=== PATIENT | female | born 1950 | race Caucasian/White ===

== ENCOUNTER 2019-01-16 14:08 | Inpatient (IN) | payer OTHER ==
[~2019-01-16] VITALS: Ht 157.5 cm; Wt 71.2 kg
[~2019-01-16 14:08] MED LIST: ASPIRIN EC81 M1 PO; CENTRUM SILVER1 EAC4 PO; CIPROFLOXACIN500 M1 PO; ESTRACE0.5 MG PO; GLUCOPHAGE500 MG; LISINOPRIL20 MG PO; PAXIL40 MG PO; PRAVASTATIN SOD20 MG PO; PROVERA2.5 MG PO; VITAMIN B-12500 MCG PO
[2019-01-16 14:11] VITALS: BP 161/89
[2019-01-16] MEDS ORDERED: ZANTAC 150MG T150 MG PO (14:52)
[2019-01-16] MEDS ORDERED: LOPRESSOR50 PO (14:53)
[2019-01-16] MEDS ORDERED: LISINOPRIL40 MG PO (14:54)
[2019-01-16] MEDS ORDERED: PAROXETINE HCL30 MG PO (14:54)
[2019-01-16] MEDS ORDERED: MELATONIN5 M1 PO (14:55)
[2019-01-16] MEDS ORDERED: FISH OIL 1,2001 EAC3 PO (14:55)
[2019-01-16] MEDS ORDERED: [UNRECOGNIZED DRUG - OTHER] PO (14:56)
[2019-01-16] MEDS ORDERED: METOPROLOL SUCC50 MG PO (14:57)
[2019-01-16 14:58] LABS: ABSOLUTE NEUTROPHILS 5.5 thou/uL (1.4-8.2); BASOPHILS 0.2 % (0.0-2.0); HEMATOCRIT 38.1 % (37.0-47.0); LYMPHOCYTES 22.7 % (24.0-44.0); MCH 29.4 pg (26.0-34.0); MCHC 34.1 g/dL (28.0-37.0); MCV 86.1 fL (80.0-100.0); MONOCYTES 8.2 % (1.0-8.0); PLATELET COUNT 273 thou/uL (150-400); POLYS 67.9 % (36.0-66.0); RBC 4.42 mil/uL (4.20-5.00); RDW 13.5 % (10.5-14.5); WBC 8.1 thou/uL (4.0-11.0)
[2019-01-16] MEDS ORDERED: NORVASC10 MG PO (14:58)
[2019-01-16] MEDS ORDERED: STOOL SOFTENER100 MG PO (14:58)
[2019-01-16 15:17] LABS: ANION GAP 13 mmol/L (7-16); BUN 17 mg/dL (7-18); CALCIUM 10.6 mg/dL (8.5-10.1); CHLORIDE 97 mmol/L (98-107); CO2 26 mmol/L (21-32); CREATININE 1.1 mg/dL (0.6-1.0); GLUCOSE 120 mg/dL (74-106); POTASSIUM 4.4 mmol/L (3.5-5.1); SODIUM 136 mmol/L (136-145)
[2019-01-16 15:24] LABS: ALBUMIN 4.4 g/dL (3.4-5.0); SALICYLATE < 2.8 mg/dL (2.8-20.0); SGOT 24 U/L (15-37); SGPT 28 U/L (30-65); TOTAL BILIRUBIN 0.3 mg/dL (<0.1-1.0)
[2019-01-16 15:24] LABS: URINE BILIRUBIN NEGATIVE (Negative); URINE BLOOD NEGATIVE (Negative); URINE CLARITY CLEAR; URINE COLOR YELLOW; URINE GLUCOSE-RANDOM* NEGATIVE (Negative); URINE KETONES NEGATIVE (Negative); URINE LEUKOCYTES-REFLEX NEGATIVE (Negative); URINE NITRITE-REFLEX NEGATIVE (Negative); URINE PROTEIN (DIPSTICK) 2+ (Negative); URINE UROBILINOGEN 0.2 E.U./dl (0.2-1.0)
[2019-01-16 15:31] LABS: AMP/METHAMP Negative (Negative); BARBITURATES Negative (Negative); BENZODIAZEPINES Negative (Negative); COCAINE Negative (Negative); METHADONE Negative (Negative); OPIATES Negative (Negative); PCP Negative (Negative)
[2019-01-16 15:32] LABS: BACTERIA-REFLEX None Seen /HPF (None Seen); CASTS None Seen /LPF (None Seen); CRYSTALS None Seen /LPF (None Seen); MUCUS 4-6 Moderate strn/LPF (None Seen); SQUAMOUS 0-3 Few /LPF (0-3); URINE RBC None Seen /HPF (0-2); URINE WBC-REFLEX 0-5 Rare /HPF (0-5)
[2019-01-16 16:42] VITALS: BP 148/79
--- NOTE | 2019-01-16 17:00 | NUR ---
CLIENT HERE FROM ER. HAS CANCER AND LEFT HER MAY 2018, HE HAS HOUSE IN [place], [place]. HE HAS BEEN SPENDING MONEY ON RV, TRUCK, COW, AND HORSE. HE HAS CUTE OUT OF 32 YEARS DUE TO HIS CANCER. SHE FELT DEPRESSED AND WANTED TO TAKE PILLS AND NOT WAKE UP. SHE LIVES ON OWN, CALLED OF HER SI. HE CALLED POLICE. HE WANTED TO FOLLOW AMBULANCE TO HOSPITAL, HE WAS NOT ALLOWED TO FOLLOW AFTER. SHE WISHES FOR NO ONE IN FAMILY TO KNOW SHE IS HERE. SHE STATED SHE JUST WANTS TO FIGURE OUT WHAT TO DO, SELL HER HOUSE OR GO TO [facility] TO VISIT FAMILY. SHE JUST WANTS TO GET HELP AND NOT FEEL QUILTY ABOUT ILLNESS.
[2019-01-16 17:30] VITALS: BP 165/66
[2019-01-16 19:11] VITALS: BP 165/66
[2019-01-16 19:39] VITALS: BP 150/66
--- NOTE | 2019-01-16 23:45 | NUR ---
INTAKE COMPLETED ON DAY SHIFT. ASSUMED CARE @ 19:30. SITTING IN DAY ROOM. PT EXPRESSED THAT SHE WANTS TO LEAVE THIS HOSPITAL TO GO TO THE PSYCHIATRIC UNIT @ [facility]. CONVINCED TO STAY TONIGHT AND MEET WITH WHEN HE ROUNDS TOMORROW A.M. DR HENDERSON ADVISED OF SAME WHEN HE CALLED THE [facility] UN[facility]. GIVEN MELATONIN 10 MG AND LIPITOR 20MG, AND PRN SEROQUIL 25MG FOR ANXIETY. IN BED, ASLEEP.
--- NOTE | 2019-01-17 06:03 | NUR ---
SLEPT WELL, TOTAL SLEEP 8.8HOURS.
[2019-01-17 06:53] LABS: CHOLESTEROL 170 mg/dL (<200); HDL CHOLESTEROL 66 mg/dL (>40); LDL CHOLESTEROL 85 mg/dL (<100); TC:HDL 2.6 Ratio (Not establshd); TRIGLYCERIDE 95 mg/dL (<150); VLDL 19 mg/dL (<40)
[2019-01-17 07:21] LABS: TSH 2.095 uIU/mL (0.358-3.740)
[2019-01-17 08:00] VITALS: BP 150/66
--- NOTE | 2019-01-17 08:00 | NUR ---
CLIENT OUT AND EATING BREAKFAST. DENIES ANY SUICIDIAL INTENTIONS AT THIS TIME. NO ISSUES AT THIS TIME.
[2019-01-17 08:14] LABS: FOLIC ACID 69.5 ng/mL (8.6-58.9)
--- NOTE | 2019-01-17 09:00 | NUR ---
DIDN'T ATTEND GROUP THIS AM.
--- NOTE | 2019-01-17 10:45 | NUR ---
RECEIVED REPORT FROM OFFGOING SHIFT. IN DAYROOM SITTING AT THE TABLE WATCHING TV. ATE SNACK WITH SOCIAL GROUP, THEN WENT TO BEDROOM AND LAY DOWN AFTER SNACK. ASSESSED AND C/O MOVING OUT OF THE HOME TO LIVE IN . WANTED TO TALK ABOUT INSURANCE, LIVING ARRANGEMENTS, AND THE DOMESTIC PROBLEMS THAT TROUBLE HER WELL BEING. REPORTED TALKING TO THE ROMI ABOUT PERSONAL PROBLEMS. C/O ANXIETY. PRN SEROQUIL 25 MG GIVEN FOR ANXIETY.
[2019-01-17] MEDS ORDERED: FLEXERIL PO (11:30)
--- NOTE | 2019-01-17 11:30 | NUR ---
CLIENT LYING IN BED CRYING. STATED SHE HAS BEEN CRYING MORE LATELY. OT HERE TO ASSESS PATIENT.
[2019-01-17] MEDS ORDERED: ZANAFLEX2 MG PO (11:32)
--- NOTE | 2019-01-17 12:31 | NUR ---
CLIENT REFUSED MEDS. SHE IS WANTING A TRANSFER TO [facility] DUE TO NEEDING PSYCHIATRIC TREATMENT, PER CLIENT NOT SITTING AROUND SINGING BDAY SONGS. STATED SHE ONLY CAME HERE DUE TO [facility], NOW JUST WANTS TO TRANSFER. WILL NOTIFY AND GLOVE BOARDER. SHE REFUSED GROUP THIS AM. SHE SAID [facility] IS MORE HELPFUL TO HER.
--- NOTE | 2019-01-17 13:36 | NUR ---
TALKING WITH DR. HENDERSON AT THIS TIME.
--- NOTE | 2019-01-17 14:30 | NUR ---
CLIENT DECIDED TO STAY OVER THE WEEKEND, ATTENDING AFTERNOON GROUP.
--- NOTE | 2019-01-17 15:49 | NUR ---
THIS NURSE WAS LEAVING THE NURSE'S STATION AT ABOUT 11:00 A. THIS DATE. WAS UNAWARE THAT ANYONE WAS OUTSIDE THE DOOR UNTIL ALMOST RAN INTO THIS PATIENT, WHO WAS SITTING ON THE FLOOR. STATED THAT SHE WANTED TO GO TO [facility] BECAUSE "THEY KNOW WHAT THEY ARE DOING. YOU ALL ARE NOT DOING ANYTHING FOR ME." NURSE ATTEMPTED TO ENCOURAGE PATIENT THAT THE DOCTOR AND SW WOULD NEED TO DISCUSS THAT WITH HER, NOT UP TO THE NURSE. PATIENT REMAINED SEATED ON THE FLOOR UNTIL A FELLOW PATIENT, Concha., HELPED PATIENT UP. FredP. THEN SPOKE TO PATIENT, COONSOLING HER AND TALKING WITH HER. NURSE DID NOT INTENTIONALLY LEAVE THE PATIENT ON THE FLOOR. RATHER, IT WAS ONLY ONE MINUTE OR LESS BEFORE THE OTHER PATIENT OBSERVED HER SITTING THERE.
[2019-01-17 18:20] VITALS: BP 123/61
[2019-01-17 19:26] VITALS: BP 136/60
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
[2019-01-18 05:10] LABS: GLYCOHEMOGLOBIN (HGB A1C) 6.3 % (4.8-5.6)
--- NOTE | 2019-01-18 06:27 | NUR ---
IN BED ALL NOC. RESPIRATIONS EVEN AND UNLABORED. SLEPT 9 HOURS.
[2019-01-18 07:47] VITALS: BP 159/81
--- NOTE | 2019-01-18 12:58 | NUR ---
PATIENT UP ON UNIT - RESPONSIVE TO QUESTIONS ADDRESSED TO HER. STATED WANTS TO DISCHARGE HOME. HAS ALOT OF BILLS AND RESPONSIBILITIES SHE HAS TO ATTEND TO. AFFECT PLEASANT AND MOOD RESTRICTED. STATED NOT DEPRESSED AND ANXIETY LEVEL AT 1 OR LESS. DENIES ANY S/I WHEN ASKED AND FEELS STAYING HERE IS NOT BENEFITING HER. EXPRESSES CONCERNS WITH BUT FEELS NEEDS TO ACCEPT AND COPE WITH DIFFICULTIES SHE ENCOUNTERS. CALLED DAUGHTER TO ARRANGE TRANSPORTATION ONCE D/C. PATIENT HESITANT TO RESPOND WHEN ASKED IF GROUPS AND MEDICATIONS HAVE HELPED. VERY ANXIOUS TO DEPART. SOCIAL WITH PEERS AND PARTICIPATED IN GROUP ACTIVITIES AND DISCUSSIONS THIS MORNING. GOOD EYE CONTACT AND GOOD APPETITE OBSERVED.
--- NOTE | 2019-01-18 13:31 | NUR ---
I met with Dr. Shah and Michaelle, per doctor's request. He called the patient's daughter. There are concerns that the patient has guns in her home. Michaelle's daughter will be coming to [facility] to get keys to the house and to the gun cabinet. Once Michaelle's daughter has removed the guns from the home, she will return to the hospital to discharge her mother to home.
[2019-01-18 14:07] VITALS: BP 159/81
--- NOTE | 2019-01-18 14:09 | NUR ---
Patient Name: DOMENIC CHRISTIANSON Admission Date: 01/16/19 DISCHARGE PLAN: Pt will be dischareg how with an safety plan. Care Assessment: Pt was assessed by Dr. Shah, and she stated that she is not suicidal at this time. Level II Assessment: None Transportation: Pt will be transported with her daughter. Special Instructions/Notes: MADELIN safety plan with pt that if she becomes suicidal to call police, and come to emergency room immediately. Pt stated at this time she is not suicidal. Pt does not have an active plan to self-harm. MADELIN scheduled appointment with [facility] on January 19, 2019 at 10:00am. DISCHARGE TO FACILITY: Facility: Phone: Fax: Address: Contact Name: Phone: PCP: CANDIDO Psychiatrist: [facility].
--- NOTE | 2019-01-18 15:53 | NUR ---
PSYCHOSOCIAL ASSESSMENT Diagnosis: SI,HYPERCALCEMIA Admit Date: 01/16/19 Psychiatrist: BEATRIZ Symptoms associated with current admission: Suicidal ideation/attempt Presenting problems: Pt stated that she wanted kill herself, and was going overdose on medication Precipitating Factors: Non-compliance psychothx Non-compliance medication Comments: LEFT HOUSE IN MAY 2018. History of High Risk Behavors: Hx violence/aggression Suicide Risk Factors: D A-Signs of alcohol/substance abuse w/ suicide ideation B-Recent suicidal thoughts or attempts C-Recent thoughts or attempts of harming someone else D-Altered mental status due to psychiatric/chem dep etiology E-The behavior exists - add comment PSYCHIATRIC HISTORY Age of onset: 68 Prior hospitalizations: Denies hx hospitalization Hospital names and dates, if available: [facility] 2008 Most Recent Outpatient HX: Counselor/Case Management Additional information: Legal Status: Voluntary Guardian/Conservatorship type: Contact name: Contact phone: Other: Name: Phone: Other legal issues: (Arrests/convictions Current Status) P.O. Name and Phone #: FAMILY HISTORY Place of : [place], [place] Raised in: [facility] # Siblings & order: one brother and five sisters 3rd Describe relationships within family of origin: Pt stated her relationship with her sibiling once in awhile. Any psychiatric or substance abuse problems within family of origin: Y Has patient been sexually or physically abused, neglected or been taken advantage of financially? N Has the abuse been reported? N Other pertinent family information: Marital history/significant relationships: Domestic violence: N Children ages & who is caring for them: 4 adult children Is child welfare involved? N Drug history: None Alcohol Use: Past use Frequency: Weekly Quantity: 1-2 beers Have you ever felt you ought to Cut down on drinking? Have people Annoyed you by criticizing your drinking? Have you ever felt bad or Guilty about your drinking? Have you ever had a drink first thing in the morning to steady your nerves/get rid of a hangover(Eye metal riveter) CAGE TOTAL 0 If CAGE score is 3 or more, notify provider for withdrawal orders! AXIS SCREENING TOOL [place] I Mood Disorders: Depression [place] II Personality/Mental Retardation: Other Personal. Disorder [place] III Medical Impairment: [place] IV Problem(s) with: Health care services Other psych/environ prob [place] V: 50-Serious w/impairment Additional [place] comments: PERSONAL BACKGROUND Relevant cultural issues (ethnicity, values, beliefs, spiritual): Spiritual Jainism: Islam Importance of congregational to patient: High What hobbies/interests does the patient have? mir Burk Sexual orientation (relevant impact to current treatment): Heterosexual : Where did you serve: Branch of service: Rank: Discharge status: Are you a combat ? Occupational/Work: Do you work? N Do you want to work? N How many hours do you work/week? 0 How many jobs have you had in the past 5 years? 1 Do you need assistance finding a job? N Does the patient need assistance in job training? N Source of income: SSI Does patient have a Payee? N Payee name: None Approximate monthly income: 914 Does patient have adequate funds for next 30 days? Y Education background: High school diploma Highest grade completed: 12th grade Other Educational/training programs: Functional deficits: None Explain functional deficits: Current living situation: House/apartment Address/phone where pt. is livin [address] [place] [address] Does the patient plan to continue there after DC? Yes Patient lives with: Child/children Will family/significant other be involved in treatment? Other community support services utilized: Pt will stay with her daughter Tessa and have safety plan Support System Available (family/friend) Name: Tessa Garcia Relationship: daughter Name: Essie Tariq Phone: Relationship: daughter Name: Phone: Relationship: Patient strengths: Motivated Insight Family support Patient's assets: Positive support system Good self care Patient's weaknesses: Poor social skills Chronic hx mental illness Health problems Additional weaknesses: Pt is suicidal due to her being ill with cancer. Pt stated that she has estranged marriage. Patient's perception of current social insurance adviser/case management needs: Pt stated that she percieved that CM is someone who is supportive PRELIMINARY DISCHARGE PLAN Discharge plan/Community resource contacts: Pt will discharge home Discharge needs: Safety plan. Pt will be transport home with her daughter Problems anticipated on discharge: Compliance w/ med regimen Comments: (factors affecting DC plan/pt. response/interventions) Pt rich discharge home with a safety plan.
--- NOTE | 2019-01-18 16:07 | NUR ---
PATIENT DEPARTED AT 03:40 - TRANSPORTATION PRIVATE VEHICLE - DAUGHTER. PERSONNEL ITEMS PURSE AND CHANGE PURSE ( CONTENTS $62.78 ) REVIEWED WITH PATIENT - SIGNED ALL DISCHARGE PAPEWORK AND UNDERSTOOD WHAT WAS EXPLAINED TO HER. CLOTHES SHE WORE IN WERE ONLY CLOTHING SHE WAS ADMITTED WITH. FILLED OUT SURVEY AND ESCORTED BY WHEELCHAIR TO FRONT OF BUILDING.
--- NOTE | 2019-01-19 18:46 | D ---
[facility] [place] [place] [address] DISCHARGE SUMMARY Name: DOMENIC CHRISTIANSON Room #: 523B-B DIS IN M.R.#: [id number] Admission: 01/16/19 ������������������ Attend Phys: Augusto Shah DO Discharge: 01/18/19 ������������������ Date of : 54 Report #: [id number] THIS REPORT FOR: //name// CC: Augusto Multani DATE OF SERVICE: 01/18/2019 GUT CARRIER: Derrlel Brock MD DISCHARGE DIAGNOSES: 1. Major depressive disorder, recurrent, severe, improved. 2. 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 DISCHARGE PLAN: Discharged to Tessa thomson's home. She is going to be having an intake in the next day or two at [facility]'s partial hospitalization program. In addition, she is scheduled for this appointment today and 01/19/2019. She has participated in it previously. DISCHARGE MEDICATIONS: As follows: Aspirin 81 mg p.o. daily and Rx given, pravastatin 20 mg daily, multivitamin oral daily, ranitidine 150 mg twice a day for GERD, paroxetine 60 mg daily for depression, melatonin 10 mg at bedtime for sleep, docusate sodium 100 mg b.i.d. for bowel motility. The patient should also see her primary care physician within [address] month, [address] [facility] and evaluation ofbloodpressureandlipidstatus. LABORATORY DATA: From this admission are as follows: CBC within normal limits grossly. Chemistry, hemoglobin A1c 6.3, triglycerides 95, cholesterol 170, LDL 85, VLDL 19, HDL 66. B12 level 564, folate 69.5 which is slightly high. TSH 2.095. On the electrolytes, sodium 136, potassium 4.4, chloride 97, bicarbonate 26, anion gap 13, BUN 17, creatinine 1.1, estimated GFR is 20, AST 24, ALT 28, alkaline phosphatase 80, total protein 8.0, albumin 4.4. IMAGING: Did not have any imaging this admission. REASON FOR ADMISSION: Feeling increasingly depressed several days prior to admission. I have spoken about this with the PCP, given her suicide hotline number to call. This was called, the patient apparently hung up. Police was summoned to investigate. She reported plan to overdose on pills. She was brought to the Emergency Room. HOSPITAL COURSE: The patient was admitted. Initially, she was reluctant to speak with me; however, she has been going through a troubling period. Her left her about 7 months ago, has terminal illness. She is retired. She has not been structuring her time well. She has not gotten into any [address] [address] DISCHARGE SUMMARY Name: DOMEINC CHRISTIANSON JEFF Room #: 523B-B DIS IN M.R.#: [id number] Admission: 01/16/19 ������������������ Attend Phys: Augusto Shah DO Discharge: 01/18/19 ������������������ Date of : 54 Report #: [id number] psychotherapy as well. We discussed issues relating to her being overly dependent on her as they are for all practical purposes, functioning as a couple. The need for intensive psychotherapy was discussed. Hermoodandoutlookedrapidlyimprovedduring the two day stay. The patient was agreeable to discharge plan and staying with her daughter for 1 or 2 weeks and the program at [facility]. When we did a safety check with her daughter, despite my asking her if she has a firearm, it turns out she had not been completely forthright. We have arranged for her daughter to go to her house, remove and secure the firearm before the daughter came to pick her up, which she did. PHYSICAL EXAMINATION: Vital signs on day of discharge: As follows: Temperature is 36.5, pulse 81, respirations 19, BP 159/81. MUSCULOSKELETAL: Normal gait and station. PSYCHIATRIC: The patient is a well-developed, well-nourished female of origin. Attention intact. Concentration intact. Speech normal rate, normal tone. Thought process goal-directed. Thought content focused on discharge, focused on ameliorating her situation. She is future-oriented. No psychomotor agitation, no psychomotor retardation. Denied auditory or visual hallucinations. Denied currently suicidal intent or plan. Denied hopelessness, helplessness. Denied homicidal intent or plan. Memory not formally tested. Insight is fair to limited. Judgment fair. Fund of knowledge average range. PROGNOSIS: For this patient is good if she maintains in psychotherapy and moves forward with rebuilding her life. ��������������������������������������������� <ELECTRONICALLY SIGNED> ���������������������������������������� By: Augusto Shah DO ��������������������������������������������� 01/19/19 [id number] Augusto Shah DO /nt
== END 2019-01-18 15:42 | disposition home or self-care (01) | DRG 881 ==
LOC: ER 14:08 → EROBS 16:06 → SBH 16:06
PROVIDERS: Emergency Medicine; Nurse Practitioner Psychiatric/Mental Health; ADMIT Psychiatry & Neurology Psychiatry
DX: F32.9 Major depressive disorder, single episode, unspecified (principal); K21.9 Gastro-esophageal reflux disease without esophagitis; I10 Essential (primary) hypertension; E11.9 Type 2 diabetes mellitus without complications; E83.52 Hypercalcemia; E78.5 Hyperlipidemia, unspecified; Z62.820 Parent-biological child conflict; Z63.0 Problems in relationship with spouse or partner; Z79.4 Long term (current) use of insulin; Z87.81 Personal history of (healed) traumatic fracture; Z79.899 Other long term (current) drug therapy; Z79.82 Long term (current) use of aspirin
CPT/HCPCS: 10880